=== PATIENT | male | born 1985 | race Caucasian/White ===

== ENCOUNTER 2024-08-22 09:51 | Outpatient (CLI) | payer OTHER, SELFPAY ==
[2024-08-22] MEDS: ALBUTEROL 0.083% 2.5 MG/3 ML NEB IH (10:20)
[2024-08-22 10:48] VITALS: PULSE 68; PULSE 73
== END 2024-08-22 23:59 | disposition home or self-care (01) ==
LOC: RT 09:54
PROVIDERS: Visit Provider Chiropractor
DX: R06.02 Shortness of breath (principal)
CPT/HCPCS: 94060; 94640; J7613